=== PATIENT | female | born 2000 | race Two or more races ===

== ENCOUNTER → 2024-12-05 | Emergency (ER) | payer OTHER ==
[~2024-12-05] VITALS: Ht 157.5 cm; Wt 54.0 kg
[~2024-12-05] MED LIST: METOCLOPRAMIDE HCL 5 MG/ML VIAL IM STA; METOCLOPRAMIDE HCL 5 MG/ML VIAL ONE
== END | disposition home or self-care (01) ==
LOC: ER 18:59
DX: O21.8 Other vomiting complicating pregnancy (principal); Z3A.01 Less than 8 weeks gestation of pregnancy

== ENCOUNTER 2024-12-12 09:39 | Outpatient (CLI) | payer OTHER | END 2024-12-12 09:42 | disposition home or self-care (01) | LOC: PRENATAL 09:39 | PROVIDERS: ATTEND Obstetrics & Gynecology Maternal & Fetal Medicine | DX: Z76.1 Encounter for health supervision and care of foundling (principal) ==

== ENCOUNTER → 2025-03-06 14:56 | Outpatient (CLI) | payer OTHER | END | disposition home or self-care (01) | LOC: PRENATAL 14:56 | PROVIDERS: ATTEND Obstetrics & Gynecology Maternal & Fetal Medicine | DX: O44.02 Complete placenta previa NOS or without hemorrhage, second trimester (principal); O99.012 Anemia complicating pregnancy, second trimester; Z3A.25 25 weeks gestation of pregnancy ==